=== PATIENT | male | born 1990 | race African-American/Black ===

== ENCOUNTER 2018-04-13 18:16 | Emergency (ER) | payer MEDICAID ==
[~2018-04-13] VITALS: Ht 185.4 cm; Wt 68.2 kg
[2018-04-13 18:26] VITALS: Ht 185.4 cm; Wt 68.2 kg
[2018-04-13] MEDS ORDERED: TORADOL10 MG PO (21:02)
[2018-04-13 21:35] VITALS: BP 157/101
== END 2018-04-13 21:35 | disposition home or self-care (01) ==
LOC: D.ER 18:16
DX: S51.811D Laceration without foreign body of right forearm, subsequent encounter (principal); X58.XXXD Exposure to other specified factors, subsequent encounter; Z48.02 Encounter for removal of sutures; S62.305A Unspecified fracture of fourth metacarpal bone, left hand, initial encounter for closed fracture; X58.XXXA Exposure to other specified factors, initial encounter; Y93.89 Activity, other specified; Y92.89 Other specified places as the place of occurrence of the external cause

== ENCOUNTER 2018-08-03 14:44 | Emergency (ER) | payer MEDICAID ==
[~2018-08-03] VITALS: Ht 185.4 cm; Wt 68.2 kg
[~2018-08-03 14:44] MED LIST: TORADOL10 MG PO
[2018-08-03 14:47] VITALS: Ht 185.4 cm; Wt 68.2 kg
[2018-08-03] MEDS ORDERED: HYDROCODON-ACE1 EAC2 PO (16:45)
[2018-08-03 17:21] VITALS: BP 168/106
== END 2018-08-03 18:30 | disposition home or self-care (01) ==
LOC: D.ER 14:44
DX: S62.397A Other fracture of fifth metacarpal bone, left hand, initial encounter for closed fracture (principal); W22.01XA Walked into wall, initial encounter; Y93.89 Activity, other specified; Y92.89 Other specified places as the place of occurrence of the external cause

== ENCOUNTER 2019-02-18 16:49 | Emergency (ER) | payer MEDICAID ==
[~2019-02-18] VITALS: Ht 185.4 cm; Wt 79.5 kg
[~2019-02-18 16:49] MED LIST changes: +HYDROCODON-ACE1 EAC2 PO
[2019-02-18 16:55] VITALS: Ht 185.4 cm; Wt 79.5 kg
[2019-02-18 17:45] VITALS: BP 142/98
== END 2019-02-18 17:45 | disposition home or self-care (01) ==
LOC: D.ER 16:49
DX: R41.89 Other symptoms and signs involving cognitive functions and awareness (principal); Z76.5 Malingerer [conscious simulation]; I10 Essential (primary) hypertension; Z72.0 Tobacco use